=== PATIENT | male | born 1945 | race African-American/Black ===

== ENCOUNTER → 2017-02-19 | Outpatient (CLI) | payer OTHER ==
[~2017-02-19] MED LIST: ALBUTEROL2.5 MG/0.1 INH; BACTRIM DS TAB1 EACH PO; CLOPIDOGREL75 MG PO; COLACE100 MG PO; COUMADIN 1MG TAB1 M1 PO; COUMADIN 5 MG TA5 M1 PO; DIOVAN 80 MG TA80 M1 PO; DOXYCYCLINE 10100 MG PO; FINASTERIDE5 MG PO; FLOMAX0.4 MG PO; HUMALOG100 UNIT/1 SUBQ; LANTUS100 UNIT/M SUBQ; LASIX 20 MG TAB20 MG PO; LASIX 40 MG TAB40 M1 PO; MIRALAX17 GM PO; NORVASC5 MG PO; NOVOLOG100 UNIT/1 SUBQ; PROSCAR 5MG TABL5 MG PO; PROTONIX40 M1 PO; TRADJENTA5 MG PO; TRAMADOL 50 MG50 MG PO; VITAMIN D2000 UNIT PO
== END ==
LOC: RAD 12:54
DX: I82.403 Acute embolism and thrombosis of unspecified deep veins of lower extremity, bilateral (principal); R06.02 Shortness of breath; I77.819 Aortic ectasia, unspecified site

== ENCOUNTER → 2017-03-14 | Outpatient (CLI) | payer OTHER ==
--- NOTE | ~2017-03-14 | 2DMMODE ---
[facility] [place] [address] 2 D/M-MODE ECHOCARDIOGRAM Name: DAYLINANDRES FRIAS Room #: REG CL [facility]#: [id number] Admission: 03/14/17 Attend Phys: Alfa Berkowitz Discharge: Date of : 41 Date of Service: 03/14/17 1451 Report #: [id number] THIS REPORT FOR: //name// APPROVED REPORT Study performed: 03/14/2017 13:17:21 EXAM: Comprehensive 2D, Doppler, and color-flow Echocardiogram Patient Location: Out-Patient Room #: Echo lab Blood Pressure: 142/92 mmHg HR: 71 bpm Other Information Study Quality: Fair Indications Dyspnea Volumes Left Atrial Volume (Systole) Single Plane 4CH: 41.76 mL Single Plane 2CH: 38.04 mL LA ESV Index: 18.00 mL/m2 Aortic Valve AoV Peak Balbir.: 1.09 m/s AO Peak Gr.: 4.79 mmHg LVOT Max P.01 mmHg LVOT Max V: 0.87 m/s Mitral Valve E/A Ratio: 0.8 MV Decel. Time: 399.08 ms MV E Max Balbir.: 0.50 m/s MV A Balbir.: 0.65 m/s MV PHT: 115.73 ms IVRT: 152.25 ms Pulmonary Valve PV Peak Balbir.: 0.72 m/s PV Peak Gr.: 2.09 mmHg Left Ventricle The left ventricle is normal size. There is normal LV segmental wall [facility] [address] [place] [address] 2 D/M-MODE ECHOCARDIOGRAM Name: DAYLINANDRESKARLEY FRIAS Room #: REG CL Wilmer.#: [id number] Admission: 03/14/17 Attend Phys: Alfa Berkowitz Discharge: Date of : 41 Date of Service: 03/14/17 1451 Report #: [id number] motion. There is normal left ventricular wall thickness. The left ventricular systolic function is normal. The left ventricular ejection fraction is within the normal range. LVEF is 60-65%. Right Ventricle The right ventricle is normal size. The right ventricular systolic function is normal. Atria The left atrium size is normal. The right atrium size is normal. Aortic Valve The aortic valve is normal in structure. No aortic regurgitation is present. There is no aortic valvular stenosis. Mitral Valve The mitral valve is normal in structure. There is no mitral valve regurgitation noted. No evidence of mitral valve stenosis. Tricuspid Valve The tricuspid valve is normal in structure. There is no tricuspid valve regurgitation noted. Pulmonic Valve The pulmonary valve is normal in structure. There is no pulmonic valvular regurgitation. Great Vessels The aortic root is normal in size. The inferior vena cava is not well visualized. Pericardium There is no pericardial effusion. <Conclusion> The left ventricle is normal size. LVEF is 60-65%. The aortic valve is normal in structure. The mitral valve is normal in structure. The tricuspid valve is normal in structure. The pulmonary valve is normal in structure. <ELECTRONICALLY SIGNED> By: David Tompkins MD 03/14/17 1451 1451 145 David Tompkins MD /INF
== END ==
LOC: CV
DX: R06.02 Shortness of breath (principal); R60.9 Edema, unspecified

== ENCOUNTER → 2017-07-27 | Outpatient (CLI) | payer OTHER ==
--- NOTE | ~2017-07-27 | EKG ---
[address] [address] ELECTROCARDIOGRAM REPORT Name: ANDRES [facility]O [id number] Admission: 07/27/17 Attend Phys: Arelis Lowry MD Discharge: Date of : 41 Report #: [id number] THIS REPORT FOR: //name// [facility] Test Date: 2017-07-27 Test Time: 13:41:50 Pat Name: ANDRES MAO Department: Room: Gender: Radio Interference Investigator: Turner WILKINS : 1945 Requested By: Arelis Lowry Order Number: [id number] MD: Brady Peacock Measurements Intervals [place] Rate: 70 P: 9 TX: 195 QRS: 0 QRSD: 93 T: 54 QT: 410 QTc: 443 Interpretive Statements Sinus rhythm Atrial premature complex Abnormal R-wave progression, early transition Compared to ECG 07/13/2016 11:42:54 Poor R-wave progression no longer present Electronically Signed On 07-27-2017 21:05:16 CDT by Brady Peacock [email or web address] <ELECTRONICALLY SIGNED> By: Brady Peacock MD 07/27/17 2105 1341 1341 Brady Peacock MD /EPI
== END ==
LOC: CV 13:11
DX: I49.9 Cardiac arrhythmia, unspecified (principal)

== ENCOUNTER → 2017-08-07 | Outpatient (CLI) | payer OTHER ==
[2017-08-07 08:54] LABS: HEMOGLOBIN 15.3 gm/dL (14.0-18.0)
[2017-08-07 08:56] LABS: HEMATOCRIT 46.9 % (42.0-52.0); MCH 29.4 pg (26.0-34.0); MCHC 32.5 g/dL (28.0-37.0); MCV 90.4 fL (80.0-100.0); RBC 5.19 mil/uL (4.50-6.00); RDW 15.7 % (10.5-14.5); WBC 5.4 thou/uL (4.0-11.0)
[2017-08-07 09:01] LABS: CREATININE 1.6 mg/dL (0.7-1.3)
== END ==
LOC: LABMALL 08:13
PROVIDERS: Internal Medicine Pulmonary Disease
DX: R06.02 Shortness of breath (principal); R07.9 Chest pain, unspecified; K80.80 Other cholelithiasis without obstruction; N28.89 Other specified disorders of kidney and ureter

== ENCOUNTER 2017-10-04 14:07 | Inpatient (IN) | payer OTHER ==
[~2017-10-04] VITALS: Ht 195.6 cm; Wt 161.4 kg
--- NOTE | ~2017-10-04 | D ---
[facility] [place] [address] DISCHARGE SUMMARY Name: ANDRES MAO Room #: 207-P [facility] IN M.R.#: [id number] Admission: 10/04/17 Attend Phys: Skinny Beard MD Discharge: 10/09/17 Date of : 41 Report #: [id number] THIS REPORT FOR: //name// CC: Skinny Eduardo DATE OF SERVICE: 10/09/2017 HISTORY OF PRESENT ILLNESS: The patient is a 71-year-old man who came to the hospital for lower GI bleed. Please refer to admission H and P for details. HOSPITALIZATION COURSE: The patient was hospitalized. He is on Coumadin for history of DVT. The patient received FFP. His hemoglobin and hematocrit remained stable. Coumadin was discontinued. GI team was consulted. The patient had nuclear scan. Initially, scan was consistent with possible upper gastrointestinal bleed, but when revisiting this scan with a GI specialist, it appeared falsely positive scan due to extensive abdominal varices. Upper gastrointestinal bleed was unlikely. EGD was performed, that showed no active bleeding. The patient also had colonoscopy. No active source of bleeding was noted, but there was evidence of blood in colon. The patient does not have clear diverticular disease. At this time, Coumadin is on hold. The patient's hemoglobin is stable. The patient is asymptomatic, and he has no bleeding. The patient is recommended to have short followup in the GI clinic, with outpatient colonoscopy in attempt to localize the source. Currently, the patient is hemodynamically stable, his food intake is well established, and he has no active bleeding. As noted, the patient has history of DVT. Coumadin is on hold. I spoke to the interventional radiologist. The patient already has IVC filter, which is suspected to be occluded, but occlusion is chronic. CT scan of the abdomen will obtain to rule out acute occlusion. The patient is completely asymptomatic. DISCHARGE DIAGNOSES: 1. Gastrointestinal bleed, likely lower, as detailed above. No source was found on EGD and colonoscopy. Repeat colonoscopy as an outpatient is recommended. Coumadin is on hold for now. 2. False positive tagged red blood cell nuclear scan, that showed possible upper gastrointestinal bleed. Per second interpretation, this finding is likely due to the patient's abdominal vein varices. 3. History of deep venous thrombosis, status post inferior vena cava filter placement. Chronic occlusion is suspected. Coumadin is on hold for now until there is a gastrointestinal bleed risk, and until the patient has repeat [facility] [address] [place] [address] DISCHARGE SUMMARY Name: ANDRES MAO Room #: 207-P [facility] IN .R.#: [id number] Admission: 10/04/17 Attend Phys: Skinny Beard MD Discharge: 10/09/17 Date of : 41 Report #: [id number] colonoscopy shortly. 4. Diabetes mellitus type 2. 5. Hypertension. 6. Benign prostatic hypertrophy. DISCHARGE MEDICATIONS: Please refer to the medication reconciliation list. DISPOSITION: The patient is discharged home on home health. FOLLOWUP PLAN: Follow up with the primary care physician in 1-2 weeks. I spent greater than 30 minutes to coordinate the patient's discharge from the hospital. <ELECTRONICALLY SIGNED> By: Rony Carrasquillo MD 10/10/17 0746 1421 1541 Rony Carrasquillo MD /nt
--- NOTE | ~2017-10-04 | P ---
[facility] [place] [address] PROCEDURE REPORT Name: ANDRES MAO Room #: 207-P [facility] IN M.R.#: [id number] Admission: 10/04/17 Attend Phys: Skinny Beard MD Discharge: 10/09/17 Date of : 41 Report #: [id number] THIS REPORT FOR: //name// CC: Skinny Eduardo MD INPATIENT SMALL BOWEL ENDOSCOPY REPORT BRIEF HISTORY: The patient is a 71-year-old male with GI bleeding with evidence of blood loss in the upper small bowel on nuclear medicine bleeding scan. PREOPERATIVE DIAGNOSIS: Gastrointestinal bleeding. POSTOPERATIVE DIAGNOSES: Gastrointestinal bleeding with normal push enteroscopy. FINDINGS: Prior to propofol sedation, CDF push enteroscopy was discussed with the patient as well as potential risks and its complications. He indicates he understands and desire that we proceed. DESCRIPTION OF PROCEDURE: With the patient in left lateral decubitus position, the Fuji pediatric colonoscope was introduced into oropharynx under direct vision without difficulty. Examination of esophagus to its entire length revealed normal mucosa. The squamocolumnar junction was unremarkable. Scope was advanced in the stomach, which was examined on end view as well as retroflexed views. The mucosa was normal. No bleeding lesions were seen. No blood was seen. Upon retroflexion, no mass lesions or ulcers were seen. Pylorus was normal. The scope was advanced across the pylorus through duodenal sweep and into the jejunum as far as we could advance the scope. A stiffening wire was used as there was some looping of the scope. We advanced the entire length of the scope into the jejunum until we could not advance it any further. At that point, the scope was slowly withdrawn and careful circumferential views obtained. The prep was good. The mucosa normal limits, normal vascular pattern, normal light reflex. No blood was seen during this examination. The mucosa inspected was normal. No mass lesions or vascular ectasias were seen. No lesions to explain blood loss were identified. The scope was drawn back into the stomach and no additional abnormalities were seen. The scope was withdrawn. The patient tolerated the procedure well. DISPOSITION: The patient with GI bleed and abnormal nuclear medicine bleeding scan. Site of bleeding not identified. We will proceed with colonoscopy at [address] [address] PROCEDURE REPORT Name: ANDRES MAO Room #: 207-P DIS IN M.R.#: [id number] Admission: 10/04/17 Attend Phys: Skinny Beard MD Discharge: 10/09/17 Date of : 41 Report #: [id number] this time. If his source of blood loss identified, a small bowel capsule study may be consideration as well. <ELECTRONICALLY SIGNED> By: Geoff Marques MD 10/09/17 1927 1339 2114 Geoff Marques MD /nt
--- NOTE | ~2017-10-04 | EKG ---
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: MZOOK : 1945 Requested By: Aram Malagon Order Number: [id number] MD: Brady Peacock Measurements Intervals [place] Rate: 77 P: 17 PA: 197 QRS: -7 QRSD: 103 T: 34 QT: 405 QTc: 459 Interpretive Statements Sinus rhythm Multiple premature complexes, vent & supraven Abnormal R-wave progression, early transition Compared to ECG 07/27/2017 13:41:50 Atrial premature complex(es) no longer present Electronically Signed On 10-04-2017 21:20:21 [employer]HOU[employer]IVER by Brady Peacock [email or web address] <ELECTRONICALLY SIGNED> By: Brady Peacock MD 10/04/17 2120 49 49 Brady Peacock MD /EPI
--- NOTE | ~2017-10-04 | P ---
[facility] [place] [address] PROCEDURE REPORT Name: ANDRES MAO Room #: 207-P [facility] IN M.R.#: [id number] Admission: 10/04/17 Attend Phys: Siknny Beard MD Discharge: 10/09/17 Date of : 41 Report #: [id number] THIS REPORT FOR: //name// CC: Skinny Eduardo MD BRIEF HISTORY: The patient is a 71-year-old male who presented with gastrointestinal bleeding. PREOPERATIVE DIAGNOSIS: Gastrointestinal bleeding. POSTOPERATIVE DIAGNOSIS: Gastrointestinal bleeding of uncertain origin. MEDICATIONS: Deep sedation with propofol per anesthesia. SPECIMEN: None. ESTIMATED BLOOD LOSS: None related to procedure, but the patient with a colon filled with blood. FINDINGS: Prior to propofol sedation, the procedure of colonoscopy was discussed with the patient as well as potential risks and its complications. He indicates he understands and desires to proceed. DESCRIPTION OF PROCEDURE: With the patient in the left lateral decubitus position, digital examination was completed. There was noted to be darkish red liquidy material. Subsequently, Values of n video colonoscope was introduced in the rectum, advanced under direct vision. We advanced the scope forward through the colon very carefully through multiple pools of liquidy bloody material. There was also intermittent solid material. We were able to advance the scope through the entire colon into the cecum. We were able to identify the ileocecal valve and advance the scope across the ileocecal valve and visualize about 20 cm of distal terminal ileum. The distal terminal ileum was coated with dark bilious material. First this looked like blood, but we were able to lavage and aspirate some of this material out of the scope and place it on a white towel and it was yellow in appearance, not red appearance. No blood was seen in the distal terminal ileum. The scope was withdrawn back in the colon and we irrigated and suctioned as much as possible. We were able to remove a large amount of the material, but could not remove all the material. In multiple areas, we were able to see a fair amount of mucosa. The mucosa as best could be visualized was normal. Active bleeding was not encountered, although again there was blood throughout the entire colon. The blood appeared to be red or more intense distally, but again an active bleeding site or suspected bleeding site was not seen. No inflammatory lesions were seen. No polyps within the limitations of prep were seen. Diverticular disease was not seen. The bloody material was more copious distally than proximally. The scope was withdrawn from the rectum [facility] [address] [place] [address] PROCEDURE REPORT Name: ANDRES MAO Room #: 207-P [facility] IN [facility].#: [id number] Admission: 10/04/17 Attend Phys: Skinny Beard MD Discharge: 10/09/17 Date of : 41 Report #: [id number] and there was a pool of bloody material and solid material in the distal rectum and complete views could not be obtained. Again active bleeding or spurting was not identified. The scope was withdrawn. The patient tolerated the procedure well. DISPOSITION: The patient with GI bleeding. Source of bleeding not identified on this examination. Endoscopically, there did not appear to be blood in the ileum, but there was blood in the cecum. This would suggest that he has had a potentially proximal colonic bleed. However active bleeding site could not be identified. A very difficult situation with this patient who has had gastrointestinal bleeding. Small bowel bleeding scan suggested loops of small bowel. However, none could be identified on today's exam. The source of blood loss is not clear. I do not see blood in the distal small bowel. However, the patient did have a colonoscopy prep. It is possible the blood passed from the small bowel into the colon. There is also a possibility, he had a bleed in the colon since there was none seen in the distal terminal ileum. Although the colon was filled with blood, I did not identify active bleeding at this point in time. We are limited as the patient has an elevated creatinine and a CTA would potentially be problematic. We will review the nuclear medicine bleeding scan with the radiologist. Consider repeating nuclear medicine bleeding scan. If he has brisk bleeding, angiography may be a consideration. Capsule endoscopy will be consideration as well. <ELECTRONICALLY SIGNED> By: Geoff Marques MD 10/09/17 1927 1422 13 Geoff Marques MD /nt
[~2017-10-04 14:07] MED LIST changes: +BUMETANIDE 1 MG1 M1 PO; +LEVEMIR100 UNIT/1 SUBQ; +PIOGLITAZONE15 MG
[2017-10-04 14:08] VITALS: BP 123/76
[2017-10-04 14:40] LABS: ABSOLUTE NEUTROPHILS 3.3 thou/uL (1.4-8.2); BASOPHILS 0.7 % (0.0-2.0); EOSINOPHILS 3.4 % (0.0-3.0); HEMATOCRIT 42.2 % (42.0-52.0); HEMOGLOBIN 14.1 gm/dL (14.0-18.0); LYMPHOCYTES 33.9 % (24.0-44.0); MANUAL DIFF NO; MCH 29.9 pg (26.0-34.0); MCHC 33.3 g/dL (28.0-37.0); MCV 89.7 fL (80.0-100.0); MONOCYTES 8.9 % (1.0-8.0); PLATELET COUNT 148 thou/uL (150-400); POLYS 53.1 % (36.0-66.0); RBC 4.71 mil/uL (4.50-6.00); RDW 15.3 % (10.5-14.5); WBC 6.2 thou/uL (4.0-11.0)
[2017-10-04] MEDS ORDERED: TRAMADOL 50 MG50 MG PO (14:40)
[2017-10-04 14:45] LABS: APTT 34.3 Seconds (24.5-32.8); PROTIME 20.5 Seconds (9.3-11.4)
[2017-10-04 14:52] LABS: ANION GAP 6 mmol/L (7-16); BUN 27 mg/dL (7-18); CALCIUM 8.6 mg/dL (8.5-10.1); CHLORIDE 107 mmol/L (98-107); CO2 28 mmol/L (21-32); CREATININE 1.6 mg/dL (0.7-1.3); GLUCOSE 119 mg/dL (74-106); POTASSIUM 4.2 mmol/L (3.5-5.1); SODIUM 141 mmol/L (136-145)
[2017-10-04 14:55] LABS: TROPONIN-I < 0.04 ng/mL (<0.06)
[2017-10-04 16:43] VITALS: BP 151/88
[2017-10-04 19:36] VITALS: BP 154/92
[2017-10-04 20:32] VITALS: BP 149/91; BP 160/95
[2017-10-04 20:37] LABS: HEMATOCRIT 39.1 % (42.0-52.0); HEMOGLOBIN 13.1 gm/dL (14.0-18.0)
[2017-10-05] VITALS (9 sets, daily range): BP systolic 132–174; BP diastolic 78–98
[2017-10-05 03:30] LABS: ABSOLUTE NEUTROPHILS 3.5 thou/uL (1.4-8.2); BASOPHILS 0.5 % (0.0-2.0); EOSINOPHILS 3.7 % (0.0-3.0); HEMATOCRIT 37.4 % (42.0-52.0); HEMOGLOBIN 12.3 gm/dL (14.0-18.0); LYMPHOCYTES 34.1 % (24.0-44.0); MCH 29.6 pg (26.0-34.0); MCV 89.8 fL (80.0-100.0); MONOCYTES 9.9 % (1.0-8.0); PLATELET COUNT 135 thou/uL (150-400); POLYS 51.8 % (36.0-66.0); RBC 4.17 mil/uL (4.50-6.00); RDW 14.9 % (10.5-14.5); WBC 6.7 thou/uL (4.0-11.0)
[2017-10-05 03:42] LABS: MANUAL DIFF NO
[2017-10-05 03:51] LABS: INR 1.8; PROTIME 18.4 Seconds (9.3-11.4)
[2017-10-05 03:53] LABS: CALCIUM 8.3 mg/dL (8.5-10.1); CREATININE 1.4 mg/dL (0.7-1.3)
[2017-10-05 06:58] LABS: URINE BILIRUBIN NEGATIVE (Negative); URINE BLOOD NEGATIVE (Negative); URINE COLOR YELLOW; URINE GLUCOSE-RANDOM* NEGATIVE (Negative); URINE KETONES NEGATIVE (Negative); URINE PROTEIN (DIPSTICK) NEGATIVE (Negative); URINE UROBILINOGEN 0.2 E.U./dl (0.2-1.0)
[2017-10-05 07:00] LABS: URINE LEUKOCYTES-REFLEX TRACE (Negative)
[2017-10-05 09:20] LABS: HEMATOCRIT 38.9 % (42.0-52.0); HEMOGLOBIN 12.9 gm/dL (14.0-18.0)
[2017-10-05 12:21] LABS: INR 1.7
[2017-10-05 12:23] LABS: PROTIME 17.5 Seconds (9.3-11.4)
[2017-10-05 15:12] LABS: HEMATOCRIT 37.6 % (42.0-52.0); HEMOGLOBIN 12.4 gm/dL (14.0-18.0)
[2017-10-05 20:58] LABS: HEMATOCRIT 37.3 % (42.0-52.0); HEMOGLOBIN 12.3 gm/dL (14.0-18.0)
[2017-10-06 02:58] LABS: ABSOLUTE NEUTROPHILS 2.6 thou/uL (1.4-8.2); BASOPHILS 0.6 % (0.0-2.0); HEMATOCRIT 37.1 % (42.0-52.0); HEMOGLOBIN 12.3 gm/dL (14.0-18.0); LYMPHOCYTES 34.9 % (24.0-44.0); MCH 29.7 pg (26.0-34.0); MCHC 33.1 g/dL (28.0-37.0); MCV 89.8 fL (80.0-100.0); MONOCYTES 11.2 % (1.0-8.0); PLATELET COUNT 137 thou/uL (150-400); POLYS 49.3 % (36.0-66.0); RBC 4.13 mil/uL (4.50-6.00); RDW 14.9 % (10.5-14.5); WBC 5.4 thou/uL (4.0-11.0)
[2017-10-06 02:59] LABS: HEMATOCRIT 37.4 % (42.0-52.0); HEMOGLOBIN 12.2 gm/dL (14.0-18.0)
[2017-10-06 03:05] LABS: MANUAL DIFF NO
[2017-10-06 04:00] VITALS: BP 159/91
[2017-10-06 08:28] VITALS: BP 154/97
[2017-10-06 09:32] LABS: HEMATOCRIT 38.2 % (42.0-52.0); HEMOGLOBIN 12.5 gm/dL (14.0-18.0)
[2017-10-06 11:54] VITALS: BP 150/86
[2017-10-06 14:34] LABS: HEMATOCRIT 37.1 % (42.0-52.0); HEMOGLOBIN 12.3 gm/dL (14.0-18.0)
[2017-10-06 15:32] VITALS: BP 141/80
[2017-10-06 19:17] VITALS: BP 107/67
[2017-10-06 21:30] LABS: HEMATOCRIT 36.9 % (42.0-52.0); HEMOGLOBIN 12.2 gm/dL (14.0-18.0)
[2017-10-06 23:36] VITALS: BP 107/67
[2017-10-07 03:14] VITALS: BP 150/71
[2017-10-07 03:20] LABS: ABSOLUTE NEUTROPHILS 3.6 thou/uL (1.4-8.2); BASOPHILS 0.3 % (0.0-2.0); EOSINOPHILS 2.8 % (0.0-3.0); HEMATOCRIT 37.5 % (42.0-52.0); HEMOGLOBIN 12.3 gm/dL (14.0-18.0); LYMPHOCYTES 32.1 % (24.0-44.0); MCH 29.6 pg (26.0-34.0); MCHC 32.8 g/dL (28.0-37.0); MCV 90.3 fL (80.0-100.0); MONOCYTES 10.9 % (1.0-8.0); PLATELET COUNT 146 thou/uL (150-400); POLYS 53.9 % (36.0-66.0); RBC 4.15 mil/uL (4.50-6.00); RDW 14.8 % (10.5-14.5); WBC 6.6 thou/uL (4.0-11.0)
[2017-10-07 03:25] LABS: MANUAL DIFF NO
[2017-10-07 03:44] LABS: CREATININE 1.7 mg/dL (0.7-1.3); POTASSIUM 4.5 mmol/L (3.5-5.1)
[2017-10-07 07:15] VITALS: BP 147/85
[2017-10-07 09:49] LABS: HEMATOCRIT 36.9 % (42.0-52.0); HEMOGLOBIN 12.2 gm/dL (14.0-18.0)
[2017-10-07 15:24] LABS: HEMATOCRIT 36.2 % (42.0-52.0); HEMOGLOBIN 12.1 gm/dL (14.0-18.0)
[2017-10-07 16:00] VITALS: BP 166/96
[2017-10-07 19:51] VITALS: BP 157/91
[2017-10-07 21:08] LABS: HEMATOCRIT 36.8 % (42.0-52.0); HEMOGLOBIN 12.2 gm/dL (14.0-18.0)
[2017-10-07 23:15] VITALS: BP 157/91
[2017-10-08 03:18] LABS: ABSOLUTE NEUTROPHILS 2.7 thou/uL (1.4-8.2); BASOPHILS 0.5 % (0.0-2.0); EOSINOPHILS 3.6 % (0.0-3.0); HEMATOCRIT 36.8 % (42.0-52.0); HEMOGLOBIN 12.2 gm/dL (14.0-18.0); LYMPHOCYTES 38.8 % (24.0-44.0); MCH 29.9 pg (26.0-34.0); MCHC 33.2 g/dL (28.0-37.0); MCV 89.9 fL (80.0-100.0); MONOCYTES 10.3 % (1.0-8.0); PLATELET COUNT 147 thou/uL (150-400); POLYS 46.8 % (36.0-66.0); RBC 4.09 mil/uL (4.50-6.00); RDW 14.5 % (10.5-14.5); WBC 5.9 thou/uL (4.0-11.0)
[2017-10-08 03:26] LABS: INR 1.5; PROTIME 15.4 Seconds (9.3-11.4)
[2017-10-08 03:27] LABS: MANUAL DIFF NO
[2017-10-08 03:53] VITALS: BP 153/91
[2017-10-08 08:04] VITALS: BP 167/99
[2017-10-08 09:10] LABS: HEMATOCRIT 37.5 % (42.0-52.0); HEMOGLOBIN 12.4 gm/dL (14.0-18.0)
[2017-10-08 12:11] VITALS: BP 142/95
[2017-10-08 15:29] LABS: HEMATOCRIT 36.3 % (42.0-52.0); HEMOGLOBIN 12.1 gm/dL (14.0-18.0); MCHC 33.5 g/dL (28.0-37.0); MCV 89.6 fL (80.0-100.0); RBC 4.05 mil/uL (4.50-6.00); RDW 14.7 % (10.5-14.5); WBC 4.9 thou/uL (4.0-11.0)
[2017-10-08 15:45] VITALS: BP 142/88
[2017-10-08 19:46] VITALS: BP 157/96
[2017-10-08 21:15] LABS: HEMATOCRIT 37.8 % (42.0-52.0); HEMOGLOBIN 12.6 gm/dL (14.0-18.0)
[2017-10-08 23:35] VITALS: BP 193/109
[2017-10-09] VITALS (7 sets, daily range): BP systolic 123–164; BP diastolic 70–128
[2017-10-09 03:09] LABS: HEMATOCRIT 37.4 % (42.0-52.0); HEMOGLOBIN 12.3 gm/dL (14.0-18.0)
[2017-10-09 03:19] LABS: ALBUMIN 2.6 g/dL (3.4-5.0); CALCIUM 7.8 mg/dL (8.5-10.1); CREATININE 1.2 mg/dL (0.7-1.3); POTASSIUM 4.2 mmol/L (3.5-5.1); TOTAL BILIRUBIN 0.5 mg/dL (<0.1-1.0); TOTAL PROTEIN 6.1 g/dL (6.4-8.2)
[2017-10-09 09:27] LABS: HEMATOCRIT 36.9 % (42.0-52.0); HEMOGLOBIN 12.3 gm/dL (14.0-18.0)
[2017-10-09 15:15] LABS: HEMATOCRIT 39.4 % (42.0-52.0); HEMOGLOBIN 13.1 gm/dL (14.0-18.0)
== END 2017-10-09 18:10 | disposition home health service (06) | DRG 377 ==
LOC: ER 14:07 → 2N 15:48 → EROBS 15:48 → 2N 16:48
PROVIDERS: Emergency Medicine; Hospitalist; Internal Medicine Endocrinology, Diabetes & Metabolism; Internal Medicine Gastroenterology; Nurse Practitioner Acute Care; Specialist
PROC: 0DJ08ZZ Inspection of Upper Intestinal Tract, Via Natural or Artificial Opening Endoscopic (ICD-10-PCS; principal; 2017-10-05)
PROC: 0DJD8ZZ Inspection of Lower Intestinal Tract, Via Natural or Artificial Opening Endoscopic (ICD-10-PCS; 2017-10-08)
DX: K92.2 Gastrointestinal hemorrhage, unspecified (principal); E43 Unspecified severe protein-calorie malnutrition; N39.0 Urinary tract infection, site not specified; L97.929 Non-pressure chronic ulcer of unspecified part of left lower leg with unspecified severity; I12.0 Hypertensive chronic kidney disease with stage 5 chronic kidney disease or end stage renal disease; K44.9 Diaphragmatic hernia without obstruction or gangrene; K92.1 Melena; K21.9 Gastro-esophageal reflux disease without esophagitis; N40.0 Benign prostatic hyperplasia without lower urinary tract symptoms; N18.9 Chronic kidney disease, unspecified; E11.22 Type 2 diabetes mellitus with diabetic chronic kidney disease; Z79.01 Long term (current) use of anticoagulants; Z86.718 Personal history of other venous thrombosis and embolism; Z88.0 Allergy status to penicillin; Z88.1 Allergy status to other antibiotic agents; Z91.041 Radiographic dye allergy status; Z95.828 Presence of other vascular implants and grafts; Z79.4 Long term (current) use of insulin; Z79.899 Other long term (current) drug therapy
CPT/HCPCS: 10081; 62110; 62900; 70005

== ENCOUNTER → 2017-11-08 | Outpatient (CLI) | payer OTHER ==
[~2017-11-08] VITALS: Ht 195.6 cm; Wt 149.7 kg
--- NOTE | ~2017-11-08 | S ---
[facility] [place] [address] SURGICAL PATH RPT PROCEDURE Name: BLAKE MAO [id number] Admission: 11/08/17 Date of : 41 Discharge: Report #: [id number] Path Case #: [id number] PATHOLOGY REPORT COLLECTION DATE: 11/08/2017 RECEIVED DATE: 11/08/2017 SUBMITTING PHYS: Dr. Geoff Marques OTHER PHYS: Dr. Lefty Lowry SPECIMEN(S) RECEIVED: A.Proximal ascending polyp * * * * * * * * * * * * FINAL DIAGNOSIS: Polyp, at proximal ascending colon, endoscopic biopsy: - Tubular adenoma. - Negative for high grade dysplasia. (IUV:rlm; 11/09/2017) PATHOLOGIST: Farida Araujo M.D. REPORT ELECTRONICALLY SIGNED BY: Farida Araujo M.D. DATE/TIME: 11/09/2017 16:31 * * * * * * * * * * * * GROSS PATHOLOGY: Received in formalin labeled "Blake Mao, polyp at proximal ascending colon," is a 0.6 x 0.4 x 0.4 cm polypoid piece of aaron soft tissue with a stalk measuring 0.5 cm in length and 0.1 cm in diameter. The margin of the stalk is inked and the tissue is sectioned perpendicular to the margin and submitted in its entirety in cassette A1. (TSD; 11/08/2017) CLINICAL HISTORY: Pre-OP DX: Blood in stool Post-OP DX: Colon polyp INITIAL CPT CODE(S): A; 46236 Professional services performed by [facility] at [facility] [address] , [place] [address] Technical services performed by [facility] at [address] [place] [address] [address] [place] [address] SURGICAL PATH RPT PROCEDURE Name: BLAKE MAO Room #: REG MEIR [facility]clean#: [id number] Admission: 11/08/17 Date of : 41 Discharge: Report #: [id number] Path Case #: [id number] [address]. [facility] [address] [address] PHONE: [phone] DIRECTOR: Gino Calero M.D. * * * END OF REPORT * * *
--- NOTE | ~2017-11-08 | P ---
[facility] [place] [address] PROCEDURE REPORT Name: ANDRES MAO Room #: REG [facility]#: [id number] Admission: 11/08/17 Attend Phys: Gefof Marques MD Discharge: Date of : 41 Report #: [id number] THIS REPORT FOR: //name// CC: Arelis Eduardo MD BRIEF HISTORY: The patient is a 71-year-old male who was admitted to [facility] in September with GI bleeding. GI bleeding scan suggested a small bowel bleeding site. However, push small bowel endoscopy was negative. Colonoscopy was also completed at that time and the colon was filled with blood. Active bleeding site was not seen. The distal terminal ileum was normal without blood. Due to the poor prep, he presents today for repeat colonoscopy to evaluate his GI bleeding. Hemoglobin drawn today is 14.1. PREOPERATIVE DIAGNOSIS: Recent gastrointestinal bleeding on Coumadin. POSTOPERATIVE DIAGNOSES: 1. Small pedunculated polyp, proximal ascending colon. 2. Diverticulosis coli, proximal colon and distal colon. MEDICATIONS: Deep sedation with propofol per anesthesia. SPECIMEN: Polyp from proximal ascending colon. ESTIMATED BLOOD LOSS: 3 mL. PROCEDURE: Colonoscopy to cecum and terminal ileum with snare polypectomy. FINDINGS: Prior to propofol sedation, procedure of colonoscopy discussed with the patient as well as potential risks and its complications. He indicates he understands and desires to proceed. DESCRIPTION OF PROCEDURE: With the patient in left lateral decubitus position, digital examination was completed which revealed no abnormalities. Subsequently, the [place] video colonoscope was introduced in the rectum, advanced under direct vision to the cecum. Done with minimal difficulty. The cecum was identified by the ileocecal valve and appendiceal orifice. I was able to advance the scope across the ileocecal valve and examined the distal terminal ileum, which was normal. No blood or bleeding lesions were seen. The distal terminal ileum was normal. We examined about 25 cm of distal terminal ileum. At that point, the scope was withdrawn and careful circumferential views were obtained. Upon slow withdrawal of the scope, the prep was noted to be somewhat limited with pools of liquidy material. However, fortunately this material was suctioned through the scope and almost all this material was removed. Within these limitations, the mucosa was within normal limits, normal vascular pattern, [address] [address] PROCEDURE REPORT Name: DAYLINANDRESKARLEY FRIAS Room #: REG [facility] Terri.#: [id number] Admission: 11/08/17 Attend Phys: Geoff Marques MD Discharge: Date of : 41 Report #: [id number] normal light reflex. As we withdrew the scope, the mucosa was normal. In the proximal ascending colon, a 5-6 mm pedunculated polyp was seen and removed by cold snare polypectomy. Scope was further withdrawn and diverticula were seen in the hepatic flexure and a few scattered diverticula in the transverse colon. I also might point out AVMs were not seen on this exam. No blood was seen at all during this examination. As we withdrew the scope further and in particular in the left colon and the sigmoid colon, there is moderately severe diverticular disease without endoscopic evidence of diverticulitis. The scope was drawn in the rectum, no abnormalities were seen. Upon retroflexion, no abnormalities were seen. Scope was withdrawn. The patient tolerated procedure well. CONDITION OF THE PATIENT UPON DISCHARGE: Following procedure, the patient drowsy, aroused, conversant and will be discharged home when fully ambulatory. INSTRUCTIONS TO THE PATIENT AND FAMILY AT THE TIME OF DISCHARGE: Follow up on the path report of the polyp. If this is an adenoma, he should return in 5 years. If not, then 10 years would be consideration. As far as bleeding site, I do not see a source of bleeding on today's exam. He may have had a diverticular bleed. He has not had any further bleeding since discharge from the hospital. The patient also is not on Coumadin at this time. If he has further bleeding, a M2 small bowel capsule study would be indicated. He will follow up with Dr. James Barbosa with regards to his anticoagulation and monitor hemoglobin. He will return to see me as needed. Withdrawal time from the cecum was 17 minutes and 46 seconds. <ELECTRONICALLY SIGNED> By: Geoff Marques MD 11/16/17 0919 1054 1254 Geoff Marques MD /nt
[2017-11-08 09:16] LABS: HEMATOCRIT 42.6 % (42.0-52.0); HEMOGLOBIN 14.1 gm/dL (14.0-18.0)
== END | disposition home or self-care (01) ==
LOC: GI 08:16
PROVIDERS: Specialist
DX: K63.5 Polyp of colon (principal); K57.30 Diverticulosis of large intestine without perforation or abscess without bleeding; K21.9 Gastro-esophageal reflux disease without esophagitis; I10 Essential (primary) hypertension; E11.9 Type 2 diabetes mellitus without complications; N40.1 Benign prostatic hyperplasia with lower urinary tract symptoms; Z79.4 Long term (current) use of insulin; Z98.41 Cataract extraction status, right eye; Z79.01 Long term (current) use of anticoagulants; Z98.42 Cataract extraction status, left eye; Z98.890 Other specified postprocedural states; Z86.718 Personal history of other venous thrombosis and embolism; Z88.0 Allergy status to penicillin; Z88.8 Allergy status to other drugs, medicaments and biological substances; Z79.899 Other long term (current) drug therapy
CPT/HCPCS: 62110; 62900

== ENCOUNTER 2017-11-16 14:47 | Emergency (ER) | payer OTHER ==
[~2017-11-16] VITALS: Ht 195.6 cm; Wt 152.0 kg
--- NOTE | ~2017-11-16 | O ---
[facility] [place] [address] OPERATIVE REPORT Name: ANDRES MAO Room #: DEP [facility] [id number] Admission: 11/16/17 Attend Phys: Discharge: 11/16/17 Date of : 41 Report #: [id number] THIS REPORT FOR: //name// CC: Av Eduardo PREOPERATIVE DIAGNOSIS: Venous stasis ulceration of left lower leg with necrosis and heavy exudate. POSTOPERATIVE DIAGNOSIS: Venous stasis ulceration of left lower leg with necrosis and heavy exudate with 5 cm x 5.5 cm ulcer of left anterior pretibial leg. PROCEDURE: Sharp excisional curette debridement of skin and subcutaneous tissue, left lower leg ulcer. CONCRETE PRECAST MOULDER: Molina Gray MD ANESTHESIA: None. INDICATIONS: The patient is a 71-year-old gentleman who presented himself to the Emergency Room at [facility] after being seen by the nurse practitioner for Dr. Lefty Eduardo. The patient has chronic edema of the lower legs. He developed a blister of the left lower leg, which then developed into an ulcer that he had been treated with oral antibiotics and topical antibiotics; however, the ulcer became worse with more pain and drainage. Examination shows ulcer of the left lower leg, which appears venous stasis in origin, although may have a mixed arterial component. There is a significant amount of necrotic burden on the surface of the wound and densely adherent exudate that is malodorous. The wound will benefit from debridement. Informed consent for excisional debridement was obtained. PROCEDURE DESCRIPTION: Without the need for anesthesia, a sharp curette was used to perform excisional debridement of the 5 cm x 5.5 cm ulcer of the left lower leg. Sharp curette was used to debride the necrotic skin and subcutaneous tissue down to healthy bleeding subcutaneous tissue. Wound cultures were taken. After debridement, the wound was much healthier in appearance, much boat cleaner with some healthy bleeding subcutaneous deeper tissue; however, the patient's discomfort is limited to extent of deep debridement. Wound is dressed with Silvadene 1% gauze dressing. The patient will follow up in [facility], placed on Bactrim DS 1 p.o. b.i.d. to Silvadene 1% topical. <ELECTRONICALLY SIGNED> By: Molina Gray MD 11/20/17 1204 1205 [id number] Molina Gray MD /nt
--- NOTE | ~2017-11-16 | HC ---
[facility] [place] [address] CONSULTATION Name: DAYLINANDRES FRIAS Room #: DEP Car[place]#: [id number] Admission: 11/16/17 Attend Phys: Discharge: 11/16/17 Date of : 41 Report #: [id number] THIS REPORT FOR: //name// CC: Av Eduardo DATE OF SERVICE: 11/16/2017 REASON FOR CONSULTATION: Nonhealing wound of left lower leg in a patient with diabetes mellitus type 2. HISTORY OF PRESENT ILLNESS: The patient is a 71-year-old gentleman with diabetes mellitus type 2 and a history of deep vein thrombosis who presented himself to the Emergency Room this evening at [facility]. This gentleman developed a painful blistered wound of his left lower leg about 7 weeks ago. This is painful to the touch. The blister ruptured and he had an open wound. The patient saw his physician and was put on a course of Levaquin a week or 2 ago, which he finished and a topical Bactroban. The patient has noted that the wound is more painful, more discharge, therefore came to the Emergency Room. His has been helping him to care for it. The patient was seen by his primary care physician, Dr. Lefty Eduardo, who directed him to the Emergency Room due to deterioration of the wound. He was seen by Dr. Eduardo's nurse practitioner. PAST MEDICAL HISTORY: History of deep vein thrombosis of right lower extremity. The patient is not on anticoagulants now. The patient had an IVC filter placed. History of benign prostatic hypertrophy, history of hydrocele, history of hypertension, history of diabetes mellitus type 2, history of sleep apnea, history of GI bleed after which time anticoagulants were stopped and IVC filter was placed. PAST SURGICAL HISTORY: Colonoscopy, lumbar diskectomy, cataract surgery, placement of IVC filter. MEDICATIONS: Include Protonix, Flomax, Norvasc and Levemir insulin. ALLERGIES: CIPRO AND PENICILLIN. SOCIAL HISTORY: The patient does not smoke or drink. REVIEW OF SYSTEMS: Noncontributory. PHYSICAL EXAMINATION: GENERAL: Shows an elderly gentleman, somewhat obese. VITAL SIGNS: Temperature 36.4, blood pressure 187/106, pulse 79, respirations 16. [facility] [address] [place] [address] CONSULTATION Name: ANDRES MAO Room #: DEP [facility]#: [id number] Admission: 11/16/17 Attend Phys: Discharge: 11/16/17 Date of : 41 Report #: [id number] HEENT: Mucous membranes are moist. NECK: Supple. LUNGS: Respirations are unlabored. ABDOMEN: Obese and soft. EXTREMITIES: Show mild edema of the right lower extremity. Examination of the left lower extremity shows a palpable dorsalis pedis pulse, some swelling of the left lower extremity, some sign of chronic venous stasis of the left lower extremity. Over the left anterior pretibial area, there is a 5 cm x 5.5 cm ulcer which is irregular and well demarcated. There is necrotic malodorous superficial tissue and dense adherent exudate. Wound cultures were taken and separately dictated. Wound was sharply debrided with a curette. IMPRESSION: 1. Obesity. 2. History of deep vein thrombosis of right leg. 3. Bilateral lower extremity edema. 4. Venous stasis ulceration of left lower extremity with ulcer and inflammation. 5. Cellulitis of left lower leg. ASSESSMENT AND PLAN: The patient has an ulceration of the left lower leg which is most likely a venous stasis ulceration, although an arterial component would need to be ruled out. Cellulitis is minimal; I do not believe the patient requires hospitalization. Treatment will consist of wound culture and sharp curette debridement at the bedside. We will dress the wound with Silvadene 1% and a gauze dressing. We will give him prescription for Silvadene 1% to apply twice daily and a prescription for Bactrim-DS 1 p.o. b.i.d. The patient will follow up in the wound care center at [facility] where he will see me, Dr. Kam or Dr. Ngo. In the wound care clinic, we will continue vascular assessment, assess arterial insufficiency of the lower extremity and likely plan compression therapy for venous stasis ulceration. The patient agrees to come see me next week in the clinic, given a prescription for Bactrim-DS 1 p.o. b.i.d. for 14 days and Silvadene 1% topical. <ELECTRONICALLY SIGNED> By: Molina Gray MD 11/20/17 1204 1202 1703 Molina Gray MD /nt
[2017-11-16 19:19] LABS: ABSOLUTE NEUTROPHILS 3.3 thou/uL (1.4-8.2); BASOPHILS 0.6 % (0.0-2.0); EOSINOPHILS 3.3 % (0.0-3.0); HEMATOCRIT 43.4 % (42.0-52.0); HEMOGLOBIN 14.4 gm/dL (14.0-18.0); LYMPHOCYTES 32.2 % (24.0-44.0); MCH 29.4 pg (26.0-34.0); MCHC 33.1 g/dL (28.0-37.0); MCV 88.7 fL (80.0-100.0); MONOCYTES 9.8 % (1.0-8.0); PLATELET COUNT 169 thou/uL (150-400); POLYS 54.1 % (36.0-66.0); RBC 4.89 mil/uL (4.50-6.00); RDW 15.3 % (10.5-14.5); WBC 6.2 thou/uL (4.0-11.0)
[2017-11-16 19:28] LABS: CALCIUM 8.7 mg/dL (8.5-10.1); CREATININE 1.3 mg/dL (0.7-1.3); POTASSIUM 4.4 mmol/L (3.5-5.1)
[2017-11-16 19:31] LABS: INR 1.1; PROTIME 11.6 Seconds (9.3-11.4)
[2017-11-16 21:17] VITALS: BP 173/99
== END 2017-11-16 21:18 | disposition home or self-care (01) ==
LOC: ER 14:47
PROVIDERS: Physician Assistant
DX: L97.829 Non-pressure chronic ulcer of other part of left lower leg with unspecified severity (principal); I10 Essential (primary) hypertension; E11.9 Type 2 diabetes mellitus without complications; K21.9 Gastro-esophageal reflux disease without esophagitis; G47.30 Sleep apnea, unspecified; Z88.0 Allergy status to penicillin; Z88.1 Allergy status to other antibiotic agents; Z79.4 Long term (current) use of insulin

== ENCOUNTER → 2017-11-20 | Outpatient (CLI) | payer OTHER | LOC: HYPER 06:36 | DX: E11.622 Type 2 diabetes mellitus with other skin ulcer (principal); I87.332 Chronic venous hypertension (idiopathic) with ulcer and inflammation of left lower extremity; L97.821 Non-pressure chronic ulcer of other part of left lower leg limited to breakdown of skin; R60.0 Localized edema; K21.9 Gastro-esophageal reflux disease without esophagitis; E66.9 Obesity, unspecified; Z68.39 Body mass index [BMI] 39.0-39.9, adult; Z79.4 Long term (current) use of insulin; Z86.718 Personal history of other venous thrombosis and embolism ==

== ENCOUNTER → 2017-11-29 | Outpatient (CLI) | payer OTHER | LOC: HYPER 11-27 11:43 → ULTRA 07:10 → HYPER 10:49 | DX: L97.928 Non-pressure chronic ulcer of unspecified part of left lower leg with other specified severity (principal); L97.929 Non-pressure chronic ulcer of unspecified part of left lower leg with unspecified severity ==

== ENCOUNTER → 2017-12-18 | Outpatient (CLI) | payer OTHER | LOC: HYPER 07:04 | DX: E11.622 Type 2 diabetes mellitus with other skin ulcer (principal); L97.811 Non-pressure chronic ulcer of other part of right lower leg limited to breakdown of skin; I87.331 Chronic venous hypertension (idiopathic) with ulcer and inflammation of right lower extremity; G47.30 Sleep apnea, unspecified; E66.9 Obesity, unspecified; K21.9 Gastro-esophageal reflux disease without esophagitis; Z98.49 Cataract extraction status, unspecified eye; Z79.4 Long term (current) use of insulin; Z86.718 Personal history of other venous thrombosis and embolism; Z68.39 Body mass index [BMI] 39.0-39.9, adult ==

== ENCOUNTER → 2017-12-25 | Outpatient (CLI) | payer OTHER | LOC: HYPER 07:10 | DX: E11.622 Type 2 diabetes mellitus with other skin ulcer (principal); L97.811 Non-pressure chronic ulcer of other part of right lower leg limited to breakdown of skin; I87.331 Chronic venous hypertension (idiopathic) with ulcer and inflammation of right lower extremity; I10 Essential (primary) hypertension; G47.30 Sleep apnea, unspecified; E66.9 Obesity, unspecified; K21.9 Gastro-esophageal reflux disease without esophagitis; Z79.4 Long term (current) use of insulin; Z86.718 Personal history of other venous thrombosis and embolism; Z68.39 Body mass index [BMI] 39.0-39.9, adult ==

== ENCOUNTER → 2018-01-01 | Outpatient (CLI) | payer OTHER | LOC: HYPER 06:48 | DX: E11.622 Type 2 diabetes mellitus with other skin ulcer (principal); I87.332 Chronic venous hypertension (idiopathic) with ulcer and inflammation of left lower extremity; L97.821 Non-pressure chronic ulcer of other part of left lower leg limited to breakdown of skin; R60.0 Localized edema; K21.9 Gastro-esophageal reflux disease without esophagitis; E66.9 Obesity, unspecified; Z68.39 Body mass index [BMI] 39.0-39.9, adult; Z79.4 Long term (current) use of insulin; Z86.718 Personal history of other venous thrombosis and embolism ==

== ENCOUNTER → 2018-01-08 | Outpatient (CLI) | payer OTHER | LOC: HYPER 06:59 | DX: E11.622 Type 2 diabetes mellitus with other skin ulcer (principal); I87.332 Chronic venous hypertension (idiopathic) with ulcer and inflammation of left lower extremity; L97.821 Non-pressure chronic ulcer of other part of left lower leg limited to breakdown of skin; I87.311 Chronic venous hypertension (idiopathic) with ulcer of right lower extremity; L97.811 Non-pressure chronic ulcer of other part of right lower leg limited to breakdown of skin; I10 Essential (primary) hypertension; K21.9 Gastro-esophageal reflux disease without esophagitis; E66.9 Obesity, unspecified; G47.30 Sleep apnea, unspecified; Z79.4 Long term (current) use of insulin; Z86.718 Personal history of other venous thrombosis and embolism; Z68.39 Body mass index [BMI] 39.0-39.9, adult ==

== ENCOUNTER → 2018-01-15 | Outpatient (CLI) | payer OTHER | LOC: HYPER 07:04 | DX: E11.622 Type 2 diabetes mellitus with other skin ulcer (principal); I87.332 Chronic venous hypertension (idiopathic) with ulcer and inflammation of left lower extremity; L97.821 Non-pressure chronic ulcer of other part of left lower leg limited to breakdown of skin; I87.331 Chronic venous hypertension (idiopathic) with ulcer and inflammation of right lower extremity; L97.811 Non-pressure chronic ulcer of other part of right lower leg limited to breakdown of skin; E66.9 Obesity, unspecified; K21.9 Gastro-esophageal reflux disease without esophagitis; G47.30 Sleep apnea, unspecified; Z79.4 Long term (current) use of insulin; Z68.39 Body mass index [BMI] 39.0-39.9, adult; Z86.718 Personal history of other venous thrombosis and embolism ==

== ENCOUNTER → 2018-01-31 | Outpatient (CLI) | payer OTHER | LOC: HYPER 01-24 10:36 | DX: E11.622 Type 2 diabetes mellitus with other skin ulcer (principal); I87.331 Chronic venous hypertension (idiopathic) with ulcer and inflammation of right lower extremity; L97.811 Non-pressure chronic ulcer of other part of right lower leg limited to breakdown of skin; E66.9 Obesity, unspecified; K21.9 Gastro-esophageal reflux disease without esophagitis; G47.30 Sleep apnea, unspecified; Z79.4 Long term (current) use of insulin; Z86.718 Personal history of other venous thrombosis and embolism ==

== ENCOUNTER → 2018-02-12 | Outpatient (CLI) | payer OTHER | LOC: HYPER 11:51 | DX: E11.622 Type 2 diabetes mellitus with other skin ulcer (principal); I87.331 Chronic venous hypertension (idiopathic) with ulcer and inflammation of right lower extremity; L97.811 Non-pressure chronic ulcer of other part of right lower leg limited to breakdown of skin; E66.9 Obesity, unspecified; K21.9 Gastro-esophageal reflux disease without esophagitis; G47.30 Sleep apnea, unspecified; Z79.4 Long term (current) use of insulin; Z86.718 Personal history of other venous thrombosis and embolism ==

== ENCOUNTER → 2018-02-26 | Outpatient (CLI) | payer OTHER | LOC: HYPER 07:02 | DX: E11.622 Type 2 diabetes mellitus with other skin ulcer (principal); I87.333 Chronic venous hypertension (idiopathic) with ulcer and inflammation of bilateral lower extremity; L97.821 Non-pressure chronic ulcer of other part of left lower leg limited to breakdown of skin; L97.811 Non-pressure chronic ulcer of other part of right lower leg limited to breakdown of skin; E66.9 Obesity, unspecified; K21.9 Gastro-esophageal reflux disease without esophagitis; G47.30 Sleep apnea, unspecified; Z98.49 Cataract extraction status, unspecified eye; Z79.4 Long term (current) use of insulin; Z86.718 Personal history of other venous thrombosis and embolism; Z68.39 Body mass index [BMI] 39.0-39.9, adult ==

== ENCOUNTER → 2018-02-28 | Outpatient (CLI) | payer OTHER | LOC: SLEEPLAB 16:06 | DX: G47.33 Obstructive sleep apnea (adult) (pediatric) (principal) ==

== ENCOUNTER → 2018-03-21 | Outpatient (CLI) | payer OTHER | LOC: HYPER 06:45 | DX: E11.622 Type 2 diabetes mellitus with other skin ulcer (principal); I87.333 Chronic venous hypertension (idiopathic) with ulcer and inflammation of bilateral lower extremity; L97.821 Non-pressure chronic ulcer of other part of left lower leg limited to breakdown of skin; L97.811 Non-pressure chronic ulcer of other part of right lower leg limited to breakdown of skin; I10 Essential (primary) hypertension; K21.9 Gastro-esophageal reflux disease without esophagitis; G47.30 Sleep apnea, unspecified; E66.9 Obesity, unspecified; Z79.4 Long term (current) use of insulin; Z86.718 Personal history of other venous thrombosis and embolism; Z68.39 Body mass index [BMI] 39.0-39.9, adult; Z98.49 Cataract extraction status, unspecified eye ==

== ENCOUNTER → 2018-04-18 | Outpatient (CLI) | payer OTHER | LOC: HYPER 06:45 | DX: E11.622 Type 2 diabetes mellitus with other skin ulcer (principal); I87.333 Chronic venous hypertension (idiopathic) with ulcer and inflammation of bilateral lower extremity; L97.811 Non-pressure chronic ulcer of other part of right lower leg limited to breakdown of skin; L97.821 Non-pressure chronic ulcer of other part of left lower leg limited to breakdown of skin; R60.0 Localized edema; K21.9 Gastro-esophageal reflux disease without esophagitis; E66.9 Obesity, unspecified; Z68.39 Body mass index [BMI] 39.0-39.9, adult; Z79.4 Long term (current) use of insulin; Z86.718 Personal history of other venous thrombosis and embolism ==

== ENCOUNTER → 2018-05-14 | Outpatient (CLI) | payer OTHER | LOC: HYPER 12:15 | DX: E11.622 Type 2 diabetes mellitus with other skin ulcer (principal); I87.331 Chronic venous hypertension (idiopathic) with ulcer and inflammation of right lower extremity; L97.811 Non-pressure chronic ulcer of other part of right lower leg limited to breakdown of skin; E66.9 Obesity, unspecified; K21.9 Gastro-esophageal reflux disease without esophagitis; G47.30 Sleep apnea, unspecified; Z98.49 Cataract extraction status, unspecified eye; Z79.4 Long term (current) use of insulin; Z86.718 Personal history of other venous thrombosis and embolism; Z68.39 Body mass index [BMI] 39.0-39.9, adult ==

== ENCOUNTER 2018-11-25 20:14 | Emergency (ER) | payer OTHER ==
[~2018-11-25] VITALS: Ht 195.6 cm; Wt 148.8 kg
[2018-11-25 20:58] LABS: HEMATOCRIT 47.2 % (42.0-52.0); HEMOGLOBIN 16.3 gm/dL (14.0-18.0); MCH 30.5 pg (26.0-34.0); MCHC 34.5 g/dL (28.0-37.0); MCV 88.4 fL (80.0-100.0); RBC 5.34 mil/uL (4.50-6.00); RDW 14.5 % (10.5-14.5)
[2018-11-25] MEDS ORDERED: LASIX 40 MG TAB40 M2 PO (21:04)
[2018-11-25] MEDS ORDERED: PROSCAR 5MG TABL5 MG PO (21:05)
[2018-11-25 21:07] LABS: CALCIUM 8.9 mg/dL (8.5-10.1)
[2018-11-25 21:12] LABS: ALBUMIN 2.9 g/dL (3.4-5.0); TOTAL BILIRUBIN 0.5 mg/dL (<0.1-1.0)
[2018-11-25] MEDS ORDERED: DOXYCYCLINE 10100 MG PO (22:37)
[2018-11-25 23:24] VITALS: BP 171/99
== END 2018-11-25 23:25 | disposition home or self-care (01) ==
LOC: ER 20:14
PROVIDERS: Student in an Organized Health Care Education/Training Program
DX: L03.116 Cellulitis of left lower limb (principal); N40.0 Benign prostatic hyperplasia without lower urinary tract symptoms; I10 Essential (primary) hypertension; E11.9 Type 2 diabetes mellitus without complications; K21.9 Gastro-esophageal reflux disease without esophagitis; Z86.718 Personal history of other venous thrombosis and embolism; Z88.0 Allergy status to penicillin; Z88.1 Allergy status to other antibiotic agents; Z79.4 Long term (current) use of insulin

== ENCOUNTER 2018-12-05 15:06 | Inpatient (IN) | payer OTHER ==
[~2018-12-05] VITALS: Ht 195.6 cm; Wt 60.7 kg
[~2018-12-05 15:06] MED LIST changes: -ASPIRIN325 PO
--- NOTE | 2018-12-05 17:12 | NUR ---
OPHELIA COMPLETED. VSS. A/O. DENIES PAIN AT THIS TIME. NO NOTED SOA. NO NV. WOUND PHOTOGRAPH. PT RESTING IN BED AT THIS TIME. NO CONCERNS VOICED. WILL CONT. TO MONITOR.
[2018-12-05 17:23] VITALS: BP 129/71
[2018-12-05 17:39] LABS: ABSOLUTE NEUTROPHILS 3.6 thou/uL (1.4-8.2); BASOPHILS 0.6 % (0.0-2.0); EOSINOPHILS 3.4 % (0.0-3.0); HEMATOCRIT 44.6 % (42.0-52.0); HEMOGLOBIN 15.1 gm/dL (14.0-18.0); LYMPHOCYTES 26.9 % (24.0-44.0); MCH 30.3 pg (26.0-34.0); MCHC 33.9 g/dL (28.0-37.0); MCV 89.5 fL (80.0-100.0); MONOCYTES 9.4 % (1.0-8.0); PLATELET COUNT 122 thou/uL (150-400); POLYS 59.7 % (36.0-66.0); RBC 4.99 mil/uL (4.50-6.00); RDW 14.4 % (10.5-14.5)
[2018-12-05 17:56] LABS: ALBUMIN 2.7 g/dL (3.4-5.0); CALCIUM 8.3 mg/dL (8.5-10.1); CREATININE 1.8 mg/dL (0.7-1.3); MAGNESIUM 1.7 mg/dL (1.8-2.4); POTASSIUM 3.6 mmol/L (3.5-5.1); TOTAL BILIRUBIN 0.5 mg/dL (<0.1-1.0)
[2018-12-05 21:11] VITALS: BP 159/89
[2018-12-05 21:38] LABS: URINE BILIRUBIN NEGATIVE (Negative); URINE BLOOD TRACE (Negative); URINE CLARITY CLEAR; URINE COLOR YELLOW; URINE GLUCOSE-RANDOM* 1+ (Negative); URINE KETONES NEGATIVE (Negative); URINE LEUKOCYTES-REFLEX NEGATIVE (Negative); URINE NITRITE-REFLEX NEGATIVE (Negative); URINE PROTEIN (DIPSTICK) 2+ (Negative); URINE SPECIFIC GRAVITY 1.025 (1.005-1.035); URINE UROBILINOGEN 0.2 E.U./dl (0.2-1.0)
[2018-12-05 21:49] LABS: SQUAMOUS 4-10 Moderate /LPF (0-3); URINE RBC 3-10 Few /HPF (0-2); URINE WBC-REFLEX 6-15 Few /HPF (0-5); WBC CLUMPS Rare (None Seen)
[2018-12-05 21:50] LABS: BACTERIA-REFLEX 1-9 Few /HPF (None Seen); CRYSTALS None Seen /LPF (None Seen); HYALINE CASTS 4-10 Moderate /LPF (None Seen); MUCUS 0-3 Light strn/LPF (None Seen)
--- NOTE | 2018-12-06 02:54 | NUR ---
RADIOLOGY CALLED FOR PT'S ORDER FOR KUB TO BE CHANGED FROM A TWO VIEW TO A ONE VIEW TO VERIFY IVC FILTER,PHOTOGRAPHIC TECHNICIAN ON DUTY NOTIFIED ORDER CHANGED. EDEMA TO HIS BLE, R GREATER THAN L,WARM WITH OPEN AREAS.CREAM TO HIS L LEG,BETADINE TO HIS TOES ON THE RIGHT.URINAL AT BEDSIDE.PT DENIED PAIN SO FAR.PT ABLE TO MAKE HIS NEEDS KNOWN.CALL LIGHT WITHIN REACH.
[2018-12-06 04:57] VITALS: BP 170/88
[2018-12-06 07:45] VITALS: BP 135/74
[2018-12-06 09:34] LABS: INR 1.1
--- NOTE | 2018-12-06 10:50 | NUR ---
PT ADMITTED RELATED TO NONE HEALING ULCER LEFT LOWER. CM REVIEWED CHART AND SPOKE WITH CARE TEAM. CM MET WITH PT AT BEDSIDE THIS DAY. PT IS A&O X4. CM ROLE INTRODUCED. PT INDICATED THAT HE LIVES IN A HOUSE WITH HIS , SON, AND DTR. PT INDICATED THAT HE ENTERS THE HOUSE THROGUH THE GARAGE WITH NO STEPS BUT THERE ARE 12 STEPS INSIDE. 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 PT INDICATED HE HAD BEEN ON SERVICE WITH [facility] IN THE PAST AND THAT HE WANTS TO USE THEM AGAIN UPON DC. PT INDICATED HE ISN'T RECEPTIVE TO POST ACUTE CARE STAY UPON DC. CM TO FOLLOW INDICATED WITH DC PLANNING.
[2018-12-06 11:41] VITALS: BP 135/74
--- NOTE | 2018-12-06 12:44 | NUR ---
ASSUMED CARE THIS AM, SHIFT ASSESSMENT DONE, MEDS GIVEN, HOME MED REC DONE. FSBS WAS 215, INSULIN GIVEN. MAGNESIUM WAS LOW, IV REPLACEMENT INFUSING. WOUND CARE DONE. WILL CONTINUE TO ASSESS AND ASSIST WITH ADLs NEEDED.
--- NOTE | 2018-12-06 12:44 | NUR ---
CARE TEAM INDICATED THAT PT IS MEDICALLY STABLE TO DISCHARGE HOME THIS DAY. CM CONTACTED [facility] TO NOTIFY THEM. THEY INDICATED THAT THEY WOULDN'T BE ABLE TO ACCEPT PT BACK FOR SERVICES DUE TO NONCOMPLIANCE. CM ASKED THAT DC TREASURY SPECIALIST FAX REFERRAL TO [facility] FOR POSSIBLE SERVICES. AWAITING THEIR RESPONSE. CM TO FOLLOW INDICATED WITH DC PLANNING.
--- NOTE | 2018-12-06 13:07 | NUR ---
[facility] INDICATED THEY CAN'T ACCEPT PT A THEY DON'T HAVE ENOUGH STAFF IN THE AREA. REFERRAL BEING SENT TO [facility] FOR REVIEW.
[2018-12-06 13:08] VITALS: BP 135/74
--- NOTE | 2018-12-06 13:09 | NUR ---
ASSUMED CARE THIS AM, SHIFT ASSESSMENT DONE, MEDS GIVEN, VSS. DENIES ANY PAIN, NAUSEA. WOUND CARE TO LOWER EXTERMITY DONE. MAGNESIUM WAS LOW, IV REPLACEMENT IN PLACE. WILL CONTINUE TO ASSESS AND ASSIST WITH ADLs NEEDED.
--- NOTE | 2018-12-06 13:22 | NUR ---
FAXED REFERRAL TO [facility] AND SPOKE WITH ADM. SANTOS AND THEY CANNOT ACCEPT NOT ENOUGH RN IN PT'S HOME AREA. FAXED REFERRAL TO [facility] SPOKE WITH JAY AND SHE RECEIVED AND WILL REVIEW. PT. DISCHARGING TODAY. DCP TO FOLLOW.
[2018-12-06 13:53] VITALS: BP 135/74
--- NOTE | 2018-12-06 14:06 | NUR ---
Nutrition: pt admit with venous stasis ulcer left lower leg. Seen due to wound and low BMI with weight listed as 133# which is error. Pt reports stable weights and reported 328# recently. Appetite good at home but less here due to food choices. Instructed on ordering meals and obtained food preferences. Pt likes glucerna-is ordered BID. Was drinking Premier protein at home for wound. Consider low nutrition risk.
[2018-12-06] MEDS ORDERED: ASPIRIN325 PO (16:02)
[2018-12-06 16:51] VITALS: BP 135/74
--- NOTE | 2018-12-06 17:05 | NUR ---
DISCHARGE ORDERS RECEIVED. ASSOCIATE MARKETING MANAGER TAHIRA WAS CALLED AND INFORMED ABOUT HOME HEALTH SET UP, BUT DESPITE 5 REFERRALS NO RESPONSE WAS FOUND. LULA WAS CALLED AND SHE TOLD THAT HE WOULD NOT NEED HOME HEALTH UNTIL NEXT SUNDAY OR SUNDAY. SO HOME HEALTH IS GOING TO BE SET UP THIS SUNDAY. PERIPHEARL IV WAS TAKEN OUT. DSICHARGE PAPER WORKS GIVEN. LEFT WITH NURSING STAFF AT 1700.
--- NOTE | 2018-12-06 17:07 | NUR ---
WOUND CONSULT: PT. WAS SEEN TODAY BY DR. GUPTA AND MYSELF. PT. HAS SOME CELLULITIS WITH CHRONIC VENOUS STASIS TO HIS LEFT LEG. THERE IS SOME SWELLING OF THE RIGHT LEG WELL. RECOMMENDAITONS; 4 LAYER COMPRESSION WRAPS, CHANGE 2X PER WEEK PT. AND STAFF NURSE WERE INSTRUCTED ON PLAN OF CARE.
== END 2018-12-06 17:08 | disposition home health service (06) | DRG 299 ==
LOC: 4E 15:06
PROVIDERS: Nurse Practitioner; ADMIT Internal Medicine
PROC: 5A09357 Assistance with Respiratory Ventilation, Less than 24 Consecutive Hours, Continuous Positive Airway Pressure (ICD-10-PCS; principal; 2018-12-05)
DX: E11.51 Type 2 diabetes mellitus with diabetic peripheral angiopathy without gangrene (principal); E43 Unspecified severe protein-calorie malnutrition; N17.9 Acute kidney failure, unspecified; I10 Essential (primary) hypertension; N40.0 Benign prostatic hyperplasia without lower urinary tract symptoms; K21.9 Gastro-esophageal reflux disease without esophagitis; I87.8 Other specified disorders of veins; E83.42 Hypomagnesemia; G47.33 Obstructive sleep apnea (adult) (pediatric); Z88.0 Allergy status to penicillin; Z88.8 Allergy status to other drugs, medicaments and biological substances; Z86.718 Personal history of other venous thrombosis and embolism; Z98.42 Cataract extraction status, left eye; Z98.41 Cataract extraction status, right eye; Z95.828 Presence of other vascular implants and grafts; Z79.899 Other long term (current) drug therapy
CPT/HCPCS: 10783

== ENCOUNTER → 2018-12-05 | Outpatient (CLI) | payer OTHER ==
[~2018-12-05] MED LIST changes: +ASPIRIN325 PO; +LASIX 40 MG TAB40 M2 PO
== END ==
LOC: HYPER 06:58
DX: S81.802A Unspecified open wound, left lower leg, initial encounter (principal); I87.321 Chronic venous hypertension (idiopathic) with inflammation of right lower extremity; R21 Rash and other nonspecific skin eruption; E11.9 Type 2 diabetes mellitus without complications; E66.9 Obesity, unspecified; G47.30 Sleep apnea, unspecified; I10 Essential (primary) hypertension; K21.9 Gastro-esophageal reflux disease without esophagitis; Z86.718 Personal history of other venous thrombosis and embolism; Z79.4 Long term (current) use of insulin; Z68.39 Body mass index [BMI] 39.0-39.9, adult; Z98.49 Cataract extraction status, unspecified eye; X58.XXXA Exposure to other specified factors, initial encounter; Y93.89 Activity, other specified; Y92.89 Other specified places as the place of occurrence of the external cause; Y99.8 Other external cause status

== ENCOUNTER 2019-06-29 19:36 | Emergency (ER) | payer OTHER ==
[~2019-06-29] VITALS: Ht 195.6 cm; Wt 147.9 kg
[~2019-06-29 19:36] MED LIST changes: +ASPIRIN325 PO
[2019-06-29 19:38] VITALS: BP 160/99
[2019-06-29 21:07] LABS: HEMATOCRIT 45.4 % (42.0-52.0); HEMOGLOBIN 14.9 gm/dL (14.0-18.0); MCH 29.2 pg (26.0-34.0); MCHC 32.7 g/dL (28.0-37.0); MCV 89.3 fL (80.0-100.0); PLATELET COUNT 133 thou/uL (150-400); RBC 5.08 mil/uL (4.50-6.00); RDW 14.9 % (10.5-14.5); WBC 6.1 thou/uL (4.0-11.0)
[2019-06-29 21:20] LABS: CALCIUM 8.6 mg/dL (8.5-10.1); CREATININE 1.4 mg/dL (0.7-1.3); POTASSIUM 3.7 mmol/L (3.5-5.1)
[2019-06-29 21:21] LABS: APTT 27.1 Seconds (24.5-32.8); PROTIME 10.8 Seconds (9.3-11.4)
[2019-06-29 21:29] LABS: ALBUMIN 2.4 g/dL (3.4-5.0); MAGNESIUM 1.6 mg/dL (1.8-2.4); TOTAL BILIRUBIN 0.5 mg/dL (<0.1-1.0); TOTAL PROTEIN 7.2 g/dL (6.4-8.2); TROPONIN-I 0.06 ng/mL (<0.06)
[2019-06-29 22:33] LABS: ABSOLUTE NEUTROPHILS 3.5 thou/uL (1.4-8.2); LARGE PLATELETS RARE
[2019-06-29 23:49] LABS: PHOSPHORUS 3.4 mg/dL (2.5-4.9); URIC ACID* 7.1 mg/dL (2.6-7.2)
[2019-06-30 01:15] VITALS: BP 174/117
--- NOTE | 2019-06-30 08:20 | EKG ---
[place] [address] [facility] [place] [address] ELECTROCARDIOGRAM REPORT Name: DAYLINANDRES FRIAS Room #: DEP [facility] [id number] Admission: 06/29/19 Attend Phys: Discharge: 06/30/19 Date of : 41 Report #: [id number] THIS REPORT FOR: //name// [facility] ED Test Date: 2019-06-29 Test Time: 21:32:13 Pat Name: ANDRES MAO Department: Room: 170 Gender: M Cell Room Operator: MARLY : 1945 Requested By: Allan Pittman Order Number: [id number] MD: Osmar Keane Measurements Intervals [place] Rate: 85 P: 6 VA: 206 QRS: -17 QRSD: 105 T: 92 QT: 401 QTc: 477 Interpretive Statements Sinus rhythm Atrial and ventricular premature complexes Nonspecific ST and T wave abnormality Borderline prolonged QT interval Compared to ECG 10/04/2017 14:50:23 Atrial premature complex(es) now present Nonspecific change in the ST and T-wave segments Electronically Signed On 06-30-2019 8:20:13 CDT by Osmar Keane [email or web address] <ELECTRONICALLY SIGNED> By: Osmar Keane MD, [facility] 06/30/19819 31 31 Osmar Keane MD, [facility] /EPI
== END 2019-06-30 01:30 | disposition short-term general hospital (02) ==
LOC: ER 19:36 → EROBS 21:51 → ER 06-30 01:30
PROVIDERS: Emergency Medicine; Internal Medicine
DX: I11.0 Hypertensive heart disease with heart failure (principal); I50.9 Heart failure, unspecified; J90 Pleural effusion, not elsewhere classified; E83.42 Hypomagnesemia; E87.1 Hypo-osmolality and hyponatremia; N43.3 Hydrocele, unspecified; R33.9 Retention of urine, unspecified; R60.1 Generalized edema; E11.9 Type 2 diabetes mellitus without complications; K21.9 Gastro-esophageal reflux disease without esophagitis; G47.30 Sleep apnea, unspecified; Z98.41 Cataract extraction status, right eye; Z98.42 Cataract extraction status, left eye; Z98.890 Other specified postprocedural states; Z86.718 Personal history of other venous thrombosis and embolism; Z88.0 Allergy status to penicillin; Z88.1 Allergy status to other antibiotic agents

== ENCOUNTER 2019-07-17 18:39 | Inpatient (IN) | payer OTHER ==
[~2019-07-17] VITALS: Ht 195.6 cm; Wt 144.7 kg
[2019-07-17 18:40] VITALS: BP 172/102
[2019-07-17 19:29] LABS: ABSOLUTE NEUTROPHILS 4.3 thou/uL (1.4-8.2); EOSINOPHILS 3.3 % (0.0-3.0); HEMATOCRIT 46.9 % (42.0-52.0); HEMOGLOBIN 15.6 gm/dL (14.0-18.0); LYMPHOCYTES 25.5 % (24.0-44.0); MCH 29.7 pg (26.0-34.0); MCHC 33.3 g/dL (28.0-37.0); MCV 89.3 fL (80.0-100.0); MONOCYTES 8.7 % (1.0-8.0); PLATELET COUNT 176 thou/uL (150-400); POLYS 61.5 % (36.0-66.0); RBC 5.25 mil/uL (4.50-6.00); RDW 14.6 % (10.5-14.5)
[2019-07-17 19:39] LABS: CALCIUM 9.1 mg/dL (8.5-10.1); CREATININE 2.6 mg/dL (0.7-1.3)
[2019-07-17 19:57] LABS: URINE BILIRUBIN NEGATIVE (Negative); URINE BLOOD 3+ (Negative); URINE CLARITY SL CLOUDY; URINE COLOR YELLOW; URINE GLUCOSE-RANDOM* NEGATIVE (Negative); URINE KETONES NEGATIVE (Negative); URINE NITRITE-REFLEX NEGATIVE (Negative); URINE PROTEIN (DIPSTICK) 2+ (Negative); URINE SPECIFIC GRAVITY <= 1.005 (1.005-1.035); URINE UROBILINOGEN 0.2 E.U./dl (0.2-1.0)
[2019-07-17 19:58] LABS: URINE LEUKOCYTES-REFLEX 1+ (Negative)
[2019-07-17 20:00] LABS: DIRECT BILIRUBIN 0.2 mg/dL (<0.1-0.3); TOTAL BILIRUBIN 0.5 mg/dL (<0.1-1.0); TOTAL PROTEIN 8.7 g/dL (6.4-8.2)
[2019-07-17 20:11] LABS: TRIPLE PHOSPHATE CRYSTALS 0-3 Few /LPF (None Seen); URINE RBC >20 Many /HPF (0-2)
[2019-07-17 20:12] LABS: BACTERIA-REFLEX 1-9 Few /HPF (None Seen); CASTS None Seen /LPF (None Seen); CRYSTALS None Seen /LPF (None Seen); SQUAMOUS None Seen /LPF (0-3); URINE WBC-REFLEX 0-5 Rare /HPF (0-5)
[2019-07-17 22:21] VITALS: BP 172/102
[2019-07-17 22:33] VITALS: BP 142/66
[2019-07-17 23:00] VITALS: BP 146/73
[2019-07-17] MEDS ORDERED: NORCO 5-325 TA1 EAC1 PO (23:21)
[2019-07-17] MEDS ORDERED: MELATONIN3 MG PO (23:22)
[2019-07-17] MEDS ORDERED: MIRALAX17 G1 PO (23:23)
[2019-07-17] MEDS ORDERED: LIPITOR 20 MG T20 M1 PO (23:24)
[2019-07-17] MEDS ORDERED: SPIRONOLACTONE25 M1 PO (23:24)
[2019-07-17] MEDS ORDERED: DEMADEX20 MG PO (23:24)
[2019-07-17] MEDS ORDERED: COUMADIN 4 MG TA4 M1 PO (23:25)
[2019-07-17] MEDS ORDERED: HUMALOG100 UNIT/1 SUBQ (23:26)
[2019-07-18 03:59] VITALS: BP 148/83
--- NOTE | 2019-07-18 05:47 | NUR ---
PATIENT IS ALERT AND ORIENTED. PATIENT IS Q2TURN. PATIENT HAS A CHRONIC SCALES. PATIENT IS NSR ON TELE. PATIENTS LBM WAS THE 26. PATIENTS PAIN IS CONTROLLED WITH PAIN MEDICATION. PATIENT IS ON ROOM AIR DURING THE DAY. PATIENT IS ON C PAP HS. PATIENT IS RESTING COMFORTABLY IN BED. WCM. PATIENT IS PROGRESSING TO GOALS.
[2019-07-18 06:05] LABS: INR 2.6; PROTIME 26.8 Seconds (9.3-11.4)
[2019-07-18 06:06] LABS: CALCIUM 8.5 mg/dL (8.5-10.1); CREATININE 2.3 mg/dL (0.7-1.3); POTASSIUM 3.8 mmol/L (3.5-5.1)
[2019-07-18 08:03] VITALS: BP 160/80
--- NOTE | 2019-07-18 14:16 | NUR ---
INITIAL ASSESSMENT: SW reviewed chart and spoke with nursing and attending physician. Pt was admitted from [facility] due to YASMANI. SW met with pt at bedside. Introduced role of SW. Pt is alert/orientated x 4. Pt reports he has been at [facility] for a couple of days. Pt was at [facility] prior to going to [facility]. Pt has a scooter and w/c at home. Pt states he has used [facility] in the past. Pt asked SW to call his regarding discharge plans. SW spoke with pt's , Conchis, via phone. Introduced role of SW. Pt's requests referrals to be sent to [facility] and [facility]. [facility] did not have any beds available earlier in the week. [facility] would be their preference. No weekend discharge planned. Will needs insurance authorization for SNF. land planner to fax referrals to [facility] and [facility]. SW is following to assist as needed with discharge planning.
--- NOTE | 2019-07-18 14:16 | NUR ---
DISCHARGE PLANNING. PATIENT ADMITTED FROM [facility]. PATIENT DOES NOT DESIRE TO RETURN TO [facility] AND REQUESTS THAT REFERRALS BE SENT TO [facility] FOR HIS POST ACUTE NEEDS, FIRST CHOICE. AND [facility], SECOND CHOICE. CALL PLACED TO [facility] ADMISSIONS TO NOTIFY. KAYLEE TO REVIEW AND NOTIFY CM ONCE REVIEW COMPLETE. CALL PLACED TO [facility] [place] ADMISSIONS TO NOTIFY, PATEL TO REVIEW AND NOTIFY CM. FOLLOWING TO ASSIST.
[2019-07-18 14:45] VITALS: BP 149/93
[2019-07-18 17:21] VITALS: BP 182/96
--- NOTE | 2019-07-18 18:11 | NUR ---
ASSUMED CARE OF PATIENT AT 0700. PATIENT VOICED COMPLAINT OF PAIN IN PENIS FROM HIS SCALES CATHETHER. STATLOCK MOVED AND COMPLAINT IMPROVED. PATIENT VITALS STABLE.
[2019-07-18 18:30] VITALS: BP 139/96
[2019-07-18 19:45] VITALS: BP 158/87
[2019-07-19 04:00] VITALS: BP 138/86
[2019-07-19 05:04] LABS: HEMATOCRIT 44.8 % (42.0-52.0); HEMOGLOBIN 14.7 gm/dL (14.0-18.0); MCH 29.5 pg (26.0-34.0); MCHC 32.9 g/dL (28.0-37.0); MCV 89.6 fL (80.0-100.0); RDW 14.4 % (10.5-14.5)
[2019-07-19 05:21] LABS: ALBUMIN 2.5 g/dL (3.4-5.0); CALCIUM 8.3 mg/dL (8.5-10.1); CREATININE 1.7 mg/dL (0.7-1.3); PHOSPHORUS 2.8 mg/dL (2.5-4.9); POTASSIUM 3.8 mmol/L (3.5-5.1)
[2019-07-19 07:05] VITALS: BP 152/78
--- NOTE | 2019-07-19 07:15 | NUR ---
PATIENT IS ALERT AND ORIENTED. PATIENT REFUSED C PAP HS. PATIENT WAS PUT ON 3LNC HS. PATIENT IS ROOM AIR DURING THE DAY. PATIENT HAD A BATH THIS SHIFT. PATIENT IS NSR ON TELE. PATIENT IS UP TIMES 1-2. PATIENT IS RESTING COMFORTABLY IN BED. DENIES PAIN. WCM. PATIENT IS PROGRESSING TO GOALS.
[2019-07-19 14:36] VITALS: BP 141/103
--- NOTE | 2019-07-19 18:22 | NUR ---
ASSUMED CARE OF PATIENT AT 0700. PATIENT CONTINUED TO RECIEVE IV FLUIDS. PATIENT STABLE. PATIENT STAYED IN BED AND USED SCALES CATHETER TO VOID AND USES BEDPAN TO BM. ANTICAPTING D/C TOMORROW.
[2019-07-19 19:08] VITALS: BP 155/93
[2019-07-20 04:52] VITALS: BP 157/90
--- NOTE | 2019-07-20 05:42 | NUR ---
ASSUMED CARE OF PT AT 1900HRS. PT IS AOX4 BUT CAN BE FORGETFUL. FALL PRECAUTION IN PLACE. PT REFUSED TO BE TURNED. PT REFUSED CPAP AND O2 THIS SHIFT. O2 MONITORING CONTINUED. SCALES IN PLACE AND PATITENT. PT WAS ABLE TO GET COMFORTABLE AND SLEEP PART OF THE SHIFT. VSS AND PT IS PROGRESSING TOWARDS DC GOALS. WILL CONTINUE TO MONITOR.
[2019-07-20 05:54] LABS: ALBUMIN 2.4 g/dL (3.4-5.0); CALCIUM 8.2 mg/dL (8.5-10.1); CREATININE 1.5 mg/dL (0.7-1.3); PHOSPHORUS 2.8 mg/dL (2.5-4.9); POTASSIUM 4.1 mmol/L (3.5-5.1)
[2019-07-20 07:42] VITALS: BP 153/94
[2019-07-20 16:11] VITALS: BP 182/108
--- NOTE | 2019-07-20 18:28 | NUR ---
PT AND WANT HIM TO D/C TO EITHER [facility] OR [facility]...AWAITING INSURANCE AUTH AND BED AVAILABLILTY..
[2019-07-20 19:39] VITALS: BP 169/92
[2019-07-21 03:51] VITALS: BP 142/80
--- NOTE | 2019-07-21 04:47 | NUR ---
IS A/0 X4 AND COULD DISCUSS HIS CAREER AN EDUCATOR AND A COUCH FOR MULTIPLE SPORTS. PT REFUSED TO BE ON CPAP OVER THE NIGHT, OXYGEN STATS STAYED ABOVE 90. ONLY COMPLAINT IS THE SCALES AND GETS FUSSY WHEN ATTEMPTING TO TURN PT AND REFUSES Q2 TURNS. FALL PRECAUTIONS IN PLACE AND HOURLY ROUNDING.
[2019-07-21 05:34] LABS: ALBUMIN 2.4 g/dL (3.4-5.0); CALCIUM 8.6 mg/dL (8.5-10.1); PHOSPHORUS 3.5 mg/dL (2.5-4.9); POTASSIUM 4.4 mmol/L (3.5-5.1)
[2019-07-21 05:58] LABS: INR 2.4
[2019-07-21 07:30] VITALS: BP 161/92
--- NOTE | 2019-07-21 10:46 | NUR ---
KATYA called Ankita at [facility] and asked if they can accept patient. Ankita said they can and to find out if they need to start authorization, as they believed they were patient's second choice. KATYA contacted nurse garland and inquire. DP will let [facility] know either way.
--- NOTE | 2019-07-21 14:30 | NUR ---
Following for d/c planning needs. Reviewed chart and spoke with nurse and pt. Pt said he has been to [facility] and would prefer not to return there. He said he wants to go to [facility] [place]. Spoke with Greta at [facility] and she said they decline pt because of his care needs. Spoke with pt and spouse. Both are agreeable with referral to [facility] if [facility] unable to accept. Called case coordinator at [facility] and they will seek insurance authorization.
--- NOTE | 2019-07-21 14:30 | NUR ---
PACO Rosa spoke with [facility] and they can't take patient. is ok with [facility]. PACO spoke with [facility] and they are starting auth.
[2019-07-21 15:44] VITALS: BP 164/95
[2019-07-21 19:31] VITALS: BP 187/101
--- NOTE | 2019-07-21 20:45 | NUR ---
PATIENT ALERT AND ORIENTED AND STATES DOES NOT WANT TO BE DISCHARGED UNTIL MEDICAL ISSUES ARE ADDRESSED. WAITING FOR INSURANCE APPROVAL FOR DISCHARGE. SPOUSE AT BEDSIDE THIS AM. PT AND OT EVALUATE PATIENT THIS AM.
[2019-07-22 03:25] VITALS: BP 159/101
[2019-07-22 05:14] LABS: HEMATOCRIT 46.9 % (42.0-52.0); HEMOGLOBIN 15.1 gm/dL (14.0-18.0); MCH 28.9 pg (26.0-34.0); MCHC 32.2 g/dL (28.0-37.0); MCV 89.8 fL (80.0-100.0); RBC 5.22 mil/uL (4.50-6.00); RDW 14.9 % (10.5-14.5); WBC 5.7 thou/uL (4.0-11.0)
[2019-07-22 05:20] LABS: CALCIUM 8.5 mg/dL (8.5-10.1); CREATININE 1.8 mg/dL (0.7-1.3); POTASSIUM 4.3 mmol/L (3.5-5.1)
[2019-07-22 08:05] VITALS: BP 150/72
[2019-07-22 11:20] VITALS: BP 148/95
--- NOTE | 2019-07-22 12:22 | NUR ---
service planner faxed updates to Ankita at [facility] and notified her to expect. Need authorization. Faxed updates including today's OT follow up brief. (PT isn't in yet). DP will follow up
--- NOTE | 2019-07-22 14:34 | NUR ---
PACO reviewed chart and spoke with nursing and attending physician. Pt is medically stable for discharge to [facility] pending insurance authorization. associate financial planner to fax clinical/therapy updates to facility for review. PACO is following to assist as needed with discharge planning.
[2019-07-22 15:15] VITALS: BP 159/84
--- NOTE | 2019-07-22 16:04 | NUR ---
I have reviewed THE student'S documentation.
--- NOTE | 2019-07-22 16:54 | NUR ---
PT WIRKED WITH PT/OT AND PROTECTION MANAGER TODAY. GAVE MIRALAX PO TO HELP WITH BM. WILL PASS ONTO NIGHT RN TO ASK FOR BOWEL REGIMEN IN THE AM. WILL CONTINUE TO ASSESS.
[2019-07-22 19:12] VITALS: BP 179/99
[2019-07-23 03:17] VITALS: BP 157/99
--- NOTE | 2019-07-23 06:02 | NUR ---
PT IS A/0 X4. COMPLETED ASSESSMENT AND FOLLOWING POC. PT CALLED OUT ONE TIME FOR TYLENOL FOR SCROTAL PAIN, AND MIRALAX. PT HAS NOT HAD A BM IN 4 DAYS. WILL COMMUNICATE THIS WILL DAY NURSE. PT HAS NO COMPLAINTS. HOURLY ROUNDING. CALL LIGHT WITHIN REACH.
[2019-07-23 07:14] VITALS: BP 131/91
--- NOTE | 2019-07-23 11:40 | NUR ---
meeting/event planner faxed updates on patient as we need authorization for patient, patient ready dc today. Sent today's pt notes. DP notified Ankita at [facility] that updates sent to them.
--- NOTE | 2019-07-23 15:20 | NUR ---
SW reviewed chart and spoke with nursing and attending physician. Pt is progressing towards goals for discharge. [facility] has accepted pt pending insurance authorization. mechanical planner faxed updated info to [facility] earlier today for review. PACO met with pt at bedside to provide update. Pt agreeable with plan. Pt going for abdominal series due to constipation. PACO spoke with pt's , Conchis, via phone to provide update. Conchis is aware and agreeable with plan. PACO is following to assist as needed with discharge plan.
[2019-07-23 16:28] VITALS: BP 140/86
[2019-07-23 19:06] VITALS: BP 107/62
[2019-07-23 21:31] LABS: HEMATOCRIT 44.8 % (42.0-52.0); HEMOGLOBIN 14.4 gm/dL (14.0-18.0); MCH 28.8 pg (26.0-34.0); MCHC 32.1 g/dL (28.0-37.0); MCV 89.9 fL (80.0-100.0); RBC 4.98 mil/uL (4.50-6.00); RDW 15.1 % (10.5-14.5); WBC 6.7 thou/uL (4.0-11.0)
[2019-07-23 21:36] LABS: CALCIUM 8.7 mg/dL (8.5-10.1); CREATININE 1.9 mg/dL (0.7-1.3); MAGNESIUM 1.8 mg/dL (1.8-2.4); POTASSIUM 4.6 mmol/L (3.5-5.1)
--- NOTE | 2019-07-24 03:07 | NUR ---
ASSUMED CARE OF PATIENT AT 1900. VSS, AFEBRILE. DENIES PAIN, SOA OR N/V. REFUSING TO DRINK GO LITLY FLUIDS TO ASSIST WITH BOWEL MOVEMENT. STATES HE CANNOT TOLERATE THE TASTE. NO BM THIS EVENING. RESTING WELL THROUGH THE NIGHT. NO S/S OF DISTRESS, PROGRESSING TOWARDS POC GOALS.
[2019-07-24 03:19] VITALS: BP 131/53
[2019-07-24 05:57] LABS: HEMATOCRIT 43.5 % (42.0-52.0); HEMOGLOBIN 13.9 gm/dL (14.0-18.0); MCH 28.6 pg (26.0-34.0); MCHC 31.9 g/dL (28.0-37.0); MCV 89.7 fL (80.0-100.0); RBC 4.85 mil/uL (4.50-6.00); RDW 15.2 % (10.5-14.5); WBC 7.7 thou/uL (4.0-11.0)
[2019-07-24 06:05] LABS: CALCIUM 8.3 mg/dL (8.5-10.1); CREATININE 1.8 mg/dL (0.7-1.3); MAGNESIUM 1.7 mg/dL (1.8-2.4)
[2019-07-24 07:01] LABS: POTASSIUM 4.4 mmol/L (3.5-5.1)
[2019-07-24 08:11] VITALS: BP 135/90
--- NOTE | 2019-07-24 10:18 | NUR ---
DISCHARGE PLANNING. CALL RECEIVED FROM PATEL [facility] ADMISSIONS. INSURANCE AUTHORIZATION OBTAINED. PHYSICIAN NOTIFIED. PATEL TO FACILITATE D[facility]ARGE TO [facility] ONCE DISCHARGE ORDERS OBTAINED. UNIT SW AWARE. FOLLOWING.
[2019-07-24] MEDS ORDERED: AUGMENTIN 875-1 EACH PO (14:29)
--- NOTE | 2019-07-24 14:35 | NUR ---
DISCHARGE NOTE: PACO reviewed chart and spoke with nursing and attending physician. SW [facility] and they can accept pt today. naval surface fire support planner to coordinate and notify family. Chart copy ordered. SW is available to assist should needs arise.
--- NOTE | 2019-07-24 14:49 | NUR ---
Nutrition: pt admit with YASMANI thought to be related to recent diuretic therapy (60# fluid loss per pt). Seen for LOS. Hx CHF. Renal signed off. Variable intakes documented from 10-100% of meals. Pt reports eating better since have BM today. Supplements ordered daily by geriatric YARN TEXTURE MACHINE OPERATOR due to noted upper body weakness, recent multiple hospitalizations. Physician has doc malnutrition-RD will defer. Obtained food preferences from pt. Awaiting insurance authorization to tx to SNF. May benefit from added Sodium restriction to diet order. Currently only on carb controlled. BG WNL. Low risk with interventions in place
[2019-07-24 17:16] VITALS: BP 167/83
--- NOTE | 2019-07-24 18:27 | NUR ---
Assumed care approx. 0700 this AM. Patient on room air. VSS and SR on the monitor. Patient noted to still be conspitated this AM, but able to have a couple large BM's by lunch time. Cristobal catheter intact for urinary retention/BPH. Orders to leave in Cristobal cath at ma per Dr. Gallagher as patient will follow up with urology outpatient. Patient up x2 assist with gait belt and walker to chair and back to bed this afternoon. Discharge orders obtained. Patient refused wheelchair van transport so EMS picked up patient approx. 1800. Chart copy with patient. IV and tele dc'd. Patient's notified that Mr. Montes left [facility] and stated she was already with him at his new facility.
--- NOTE | 2019-07-30 09:17 | HC ---
[facility] [place] [address] CONSULTATION Name: ANDRES MAO Room #: 358-P [facility] IN ..#: [id number] Admission: 07/17/19 Attend Phys: Ganesh Brown MD Discharge: 07/24/19 Date of : 41 Report #: [id number] THIS REPORT FOR: //name// CC: [facility]th [facility] DATE OF SERVICE: 07/18/2019 REASON FOR THE CONSULTATION: Elevated creatinine. REASON FOR THE PRESENTATION: Abnormal kidney labs. HISTORY OF PRESENT ILLNESS: A 73-year-old with extensive past medical history including diabetes mellitus, hypertension, chronic kidney disease, obstructive sleep apnea, DVT, post IV filter. Most recent creatinine from 06/29/2019 was 1.4. The patient had been hospitalized for about 17 days in another facility. The details of those hospitalizations are not available for me. He tells me that he had some urinary retention. He lost significant amount of weight. The patient's labs were checked and he was told that his creatinine was above his baseline and was sent to further evaluate. We have seen this patient on numerous occasions back in 2016. His most recent creatinine from 06/29 showed his baseline is around 1.4; however, he did have repeated episodes of acute kidney injury with his creatinine going above his baseline. He denies any active symptoms. In fact, he still has a Cristobal catheter. PAST MEDICAL HISTORY: 1. Hypertension. 2. Diabetes mellitus. 3. Chronic kidney disease. 4. Ongoing urinary retention. 5. DVT with IV filter. 6. Chronic venous stasis changes. 7. Obstructive sleep apnea. SOCIAL HISTORY: Resides in a nursing facility. ALLERGIES: PENICILLIN AND DYE. FAMILY HISTORY: Diabetes mellitus and hypertension. MEDICATIONS: Currently, the patient is maintained on: 1. Flomax. 2. Warfarin. 3. Atorvastatin. 4. Torsemide. 5. Finasteride. [facility] [address] [place] [address] CONSULTATION Name: ANDRES MAO Room #: 358-P [facility] IN [facility].#: [id number] Admission: 07/17/19 Attend Phys: Ganesh Brown MD Discharge: 07/24/19 Date of : 41 Report #: [id number] REVIEW OF SYSTEMS: GENERAL: Significant for weakness. He is bedridden most of his time. CARDIOVASCULAR: No chest pain or palpitations. PULMONARY: No cough or hemoptysis. GASTROINTESTINAL: No nausea or vomiting. GENITOURINARY: No frequency, no urgency. He has a Cristobal catheter. MUSCULOSKELETAL: Back pain, lower extremity weakness. PHYSICAL EXAMINATION: GENERAL: Alert, oriented, in no apparent distress. Temperature 36.9, blood pressure 160/80. No apparent distress. HEAD AND NECK: No jugular venous distention. CHEST: No crackles. CARDIOVASCULAR: No rub. ABDOMEN: Soft. LOWER EXTREMITIES: Chronic venous stasis changes. LABORATORY VALUES: Reviewed. White blood cell count is 7.0. UA with plus protein and blood. Leukocyte esterase positive. Culture is pending. Chemistry: Sodium 136, BUN is 62, creatinine is down to 2.3. ASSESSMENT, IMPRESSION AND PLAN: 1. Acute kidney injury. 2. Chronic kidney disease. 3. Over diuresis. 4. Diabetes mellitus. 5. Hypertension. 6. Known urinary retention with chronic Cristobal catheter. 7. Deep venous thrombosis. 8. The recent jump in his creatinine is likely related to over diuresis. He has lost about 70 pounds as he stated. I am not really sure how accurate is that. 9. As for now, continue with IV fluid. 10. Do not give torsemide or spironolactone. 11. Blood pressure control. 12. Blood sugar control. 13. Keep Cristobal catheter in. 14. We will continue to follow. <ELECTRONICALLY SIGNED> By: Annabella Real MD 07/30/19 0917 [id number] Annabella Real MD /nt
== END 2019-07-24 18:09 | DRG 682 ==
LOC: ER 18:39 → 3W 21:56 → EROBS 21:56 → 3W 22:33
PROVIDERS: Emergency Medicine; Hospitalist; Internal Medicine; Nurse Practitioner Family; ADMIT Hospitalist
DX: N17.9 Acute kidney failure, unspecified (principal); E43 Unspecified severe protein-calorie malnutrition; I13.0 Hypertensive heart and chronic kidney disease with heart failure and stage 1 through stage 4 chronic kidney disease, or unspecified chronic kidney disease; N39.0 Urinary tract infection, site not specified; E11.22 Type 2 diabetes mellitus with diabetic chronic kidney disease; N18.9 Chronic kidney disease, unspecified; G47.33 Obstructive sleep apnea (adult) (pediatric); T50.2X5A Adverse effect of carbonic-anhydrase inhibitors, benzothiadiazides and other diuretics, initial encounter; B95.2 Enterococcus as the cause of diseases classified elsewhere; N40.1 Benign prostatic hyperplasia with lower urinary tract symptoms; K21.9 Gastro-esophageal reflux disease without esophagitis; R33.8 Other retention of urine; I50.9 Heart failure, unspecified; Z79.4 Long term (current) use of insulin; Z98.42 Cataract extraction status, left eye; Z98.41 Cataract extraction status, right eye; Z95.828 Presence of other vascular implants and grafts; Z88.1 Allergy status to other antibiotic agents; Z88.0 Allergy status to penicillin; Z86.718 Personal history of other venous thrombosis and embolism; Z83.3 Family history of diabetes mellitus; Z82.49 Family history of ischemic heart disease and other diseases of the circulatory system; Y92.89 Other specified places as the place of occurrence of the external cause; Z68.37 Body mass index [BMI] 37.0-37.9, adult; Z28.21 Immunization not carried out because of patient refusal
CPT/HCPCS: 10879

== ENCOUNTER → 2020-10-04 | Outpatient (CLI) | payer OTHER ==
[~2020-10-04] MED LIST changes: +AUGMENTIN 875-1 EACH PO; +COUMADIN 4 MG TA4 M1 PO; +DEMADEX20 MG PO; +FUROSEMIDE 40 M40 M1 PO; +LIPITOR 20 MG T20 M1 PO; +MELATONIN3 MG PO; +MIRALAX17 G1 PO; +MUCINEX600 MG PO; +NEURONTIN 300M300 M2 PO; +NORCO 5-325 TA1 EAC1 PO; +PRAVACHOL40 MG PO; +SPIRONOLACTONE25 M1 PO; +SPIRONOLACTONE25 MG PO; +WARFARIN SODIUM3 MG PO
== END ==
LOC: LAB 08:32
PROVIDERS: ATTEND Surgery
DX: Z01.812 Encounter for preprocedural laboratory examination (principal); Z20.828 Contact with and (suspected) exposure to other viral communicable diseases